=== PATIENT | female | born 1985 | race Caucasian/White ===

== ENCOUNTER 2024-02-23 19:23 | Inpatient (IN) | payer OTHER ==
[~2024-02-23] VITALS: Ht 160 cm; Wt 63.7 kg
[~2024-02-23 19:23] MED LIST: MOTRIN 600600 MG/TAB PO; PERCOCET 325 MG1 TA2 PO; PRENATAL1 TA1 PO; SYNTHROID 0.0.025 MG PO; TIROSINT50 MCG PO
[2024-02-23] MEDS ORDERED: NS 1,000 ML IV SCH (19:45)
[2024-02-23] MEDS ORDERED: Acetaminophen 325 MG TAB PO PRN (19:45)
[2024-02-23] MEDS ORDERED: Promethazine 25 MG TAB PO PRN (19:45)
[2024-02-23] MEDS ORDERED: Albuterol/Ipratropium 3 MG-0.5 MG/3 ML Neb Soln IH PRN (19:45)
[2024-02-23] MEDS ORDERED: AMITRIPTYLINE H10 M1 PO (19:46)
[2024-02-23] MEDS ORDERED: NAPROSYN500 MG PO (19:47)
[2024-02-23] MEDS ORDERED: FOLIC ACID 40400 MCG PO (19:47)
[2024-02-23] MEDS ORDERED: SYNTHROID0.075 MG/T PO (19:47)
[2024-02-23] MEDS ORDERED: Doxycycline Hyclate 100 MG in NS 150 ML IV SCH (20:00)
[2024-02-23] MEDS ORDERED: Albuterol/Ipratropium 3 MG-0.5 MG/3 ML Neb Soln IH SCH (20:00)
[2024-02-24] VITALS (9 sets, daily range): BP systolic 94–109; BP diastolic 46–71; PULSE 74–90; TEMP 98–103.2
[2024-02-24] MEDS ORDERED: VITAMIN C500 MG PO (01:33)
[2024-02-24] MEDS ORDERED: FERROUS GLUCON240 MG PO (01:34)
[2024-02-24] MEDS ORDERED: Amitriptyline 10 MG TAB PO SCH (01:50)
[2024-02-24] MEDS ORDERED: ZANAFLEX2 MG PO (01:52)
[2024-02-24] MEDS ORDERED: guaiFENesin/Dextromethorphan Oral Soln 200-20 MG/10 ML UD PO PRN (02:00)
[2024-02-24] MEDS ORDERED: Benzonatate 100 MG CAP PO SCH (03:00)
[2024-02-24] MEDS ORDERED: Doxycycline Hyclate 100 MG in NS 150 ML IV SCH (03:00)
--- NOTE | 2024-02-24 05:30 | NUR ---
pt ARRIVED TO THE MEDICAL FLOOR AROUND 0115 TO ROOM 305. pt A&O X 4; VSS WITH B/P A BIT LOW; O2 2L VIA NC. pt DENIES GENERAL PAIN, CHEST PAIN, PALPITATIONS, N,V,D, OR DIZZINESS. ADMISSIONS ASSESSMENT AND MED REC COMPLETE. pt ORIENTED TO ROOM AND HOSPITAL POLICY. POC DISCUSSED WITH pt. pt VERBALIZED UNDERSTANDING. ALL QUESTIONS AND CONCERNS ADDRESSED. pt EXPRESSED NO ADDITIONAL NEED AT THIS TIME. CALL LIGHT WITHIN REACH.
[2024-02-24 08:40] LABS: BASO % 0.2 % (0.0-2.0); EOS # 0.1 K/mm3 (0.0-0.7); EOS % 0.9 % (0.0-4.0); GRAN # 7.8 K/mm3 (1.4-6.5); GRAN % 80.4 % (42.2-75.2); HEMOGLOBIN 11.8 g/dl (12.5-16.0); LYMPH # 0.7 K/mm3 (1.2-3.4); LYMPH % 7.3 % (20.0-51.0); MEAN CELL VOLUME 87 fl (80.0-100.0); MEAN CORPUSCULAR HEMOGLOBIN 31 pg (27-31); MEAN CORPUSCULAR HGB CONC 36 g/dl (33.0-37.0); MEAN PLATELET VOLUME 9.8 fl (7.4-10.4); MONO % 10.2 % (1.7-9.3); PLATELET COUNT 281 K/mm3 (130-400); RED BLOOD COUNT 3.78 M/mm3 (4.10-5.30); REDCELL DISTRIBUTION WIDTH-CV 12.1 % (11.5-14.5)
[2024-02-24 08:41] LABS: HEMATOCRIT 32.8 % (37.0-47.0)
[2024-02-24] MEDS ORDERED: Ascorbic Acid 500 MG TAB PO SCH (09:00)
[2024-02-24] MEDS ORDERED: Folic Acid 1 MG TAB PO SCH (09:00)
[2024-02-24 09:05] LABS: ALBUMIN 2.5 g/dL (3.5-5.0); BILIRUBIN,TOTAL 0.4 mg/dL (0.2-1.2); CALCIUM 8.2 mg/dL (8.4-10.2); CREATININE, serum 0.66 mg/dL (0.57-1.11); POTASSIUM 3.5 mEq/L (3.5-4.5); TOTAL PROTEIN 5.8 g/dl (6.2-8.1)
--- NOTE | 2024-02-24 09:35 | NUR ---
Patient sitting up in bed, alert and oriented x4, VSS. States some headache and temp, tylenol provided. Assessment completed. Getting 2L O2 NC. fluids per orders. No further needs at this time. Call light within reach. Awaiting for breakfast and transfer to other room.
[2024-02-24] MEDS ORDERED: Ibuprofen 400 MG TAB PO PRN (09:45)
--- NOTE | 2024-02-24 13:08 | NUR ---
Initial visit; [place] nervous at first but warmed up to Early Childhood Education Coordinator who gave her son some attention and talked with her and her . Patient seemed to believe she is doing better. She thanked Early Childhood Education Coordinator for looking in on them and offering God's blessings.
[2024-02-24] MEDS ORDERED: Cefepime 1 G in Water For Injection,Sterile 10 ML IV SCH (15:00)
--- NOTE | 2024-02-24 15:19 | NUR ---
SW met with patient to complete initial assessment for discharge planning. Patient lives at home with her /DPDEB Aiken ([phone]) and their two children ages 9 and 6. Patient's is active , therefore they use [facility] for medical care and for pharmacy. Patient states she sometimes uses [facility] pharmacy for immediate, low cost needs. Patient denies having any DME and reports to be independent. She plans to return home at discharge. Discharge plan: Home
--- NOTE | 2024-02-24 21:49 | NUR ---
patient lying in bed, alert and oriented x4. denies chest pain/discomfort and shortness of breath. o2 sats around 89 to 90 percent on RA, 1L per NC of o2 placed and maintained. IV in RF is patent, site is CDI with NS running at 100 ml/hr. dry cough with occasional scant sputum production noted. hot tea provided per request. elevated oral temperature, tylenol refused, motrin requested and provided. ambulating with steady gait. pt upset about receiving little sleep the previous night with many interruptions, pt educated and agreed on staff providing clustered care to help minimize interruptions. no remarkable skin findings. call light within reach. pt has no further needs, questions or concerns at this time.
[2024-02-25] VITALS (13 sets, daily range): BP systolic 95–117; BP diastolic 59–75; PULSE 67–98; TEMP 97.6–100.3
[2024-02-25 07:52] LABS: HEMOGLOBIN 11.1 g/dl (12.5-16.0); MEAN CELL VOLUME 87 fl (80.0-100.0); MEAN CORPUSCULAR HEMOGLOBIN 31 pg (27-31); MEAN CORPUSCULAR HGB CONC 36 g/dl (33.0-37.0); MEAN PLATELET VOLUME 9.9 fl (7.4-10.4); PLATELET COUNT 310 K/mm3 (130-400); RED BLOOD COUNT 3.58 M/mm3 (4.10-5.30); REDCELL DISTRIBUTION WIDTH-CV 12.4 % (11.5-14.5)
[2024-02-25 07:56] LABS: HEMATOCRIT 31.3 % (37.0-47.0)
[2024-02-25 08:18] LABS: ALANINE AMINOTRANSFERASE 92 U/L (0-55); ALBUMIN 2.2 g/dL (3.5-5.0); ALKALINE PHOSPHATASE 44 U/L (40-150); ANION GAP 10 mmol/L (7-16); AST,SGOT 63 U/L (5-34); BILIRUBIN,TOTAL 0.4 mg/dL (0.2-1.2); CALCIUM 7.6 mg/dL (8.4-10.2); CHLORIDE 106 mEq/L (98-107); CREATININE, serum 0.57 mg/dL (0.57-1.11); GLUCOSE 90 mg/dL (70-99); POTASSIUM 3.7 mEq/L (3.5-4.5); SODIUM 137 mEq/L (136-145); TOTAL PROTEIN 5.2 g/dl (6.2-8.1)
[2024-02-25 08:20] LABS: BLOOD UREA NITROGEN < 5 mg/dL (7-19)
[2024-02-25 08:55] LABS: BAND 15 % (0-10); EOSINOPHIL 1 % (0-4); LYMPHOCYTE 7 % (20.0-51.0); METAMYELOCYTE 3 % (0-0); MYELOCYTE 2 % (0-0); NEUTROPHILS 64 % (42.0-75.2)
[2024-02-25 08:56] LABS: PLATELET ESTIMATE NORMAL (NORMAL)
[2024-02-25] MEDS ORDERED: DOXYCYCLINE HY100 MG PO (09:57)
[2024-02-25] MEDS ORDERED: OMNICEF 300MG300 MG PO (09:57)
[2024-02-25] MEDS ORDERED: ZOFRAN ODT4 MG PO (09:58)
[2024-02-25] MEDS ORDERED: Ondansetron 4 MG TAB PO PRN (10:15)
[2024-02-25] MEDS ORDERED: ACIDOPHILIS PO (11:09)
[2024-02-25] MEDS ORDERED: Doxycycline Hyclate 100 MG in NS 150 ML IV SCH (15:30)
--- NOTE | 2024-02-25 19:09 | NUR ---
IV site to LFA infilltrated- site d/c'd with cath tip intact. Gunnar Wilkerson RN started #22g diffusic x1 attempt to LH. Scheduled Tessalon Pearls administered and prn Robitussin x2 today for cough. Pt reports overall feeling better. Independent in room. Denies pain or needs. Bedside report given to MEREDITH Soto.
[2024-02-26] MEDS ORDERED: Cefdinir 300 MG CAP PO SCH
[2024-02-26] MEDS ORDERED: Doxycycline Monohydrate 100 MG CAP PO SCH
[2024-02-26 00:16] VITALS: BP_SYST 99
--- NOTE | 2024-02-26 01:41 | NUR ---
patient lying in bed, alert and oriented x4. denies chest pain/discomfort and shortness of breath. IV in LH is patent, site is CDI. ambulating withi steady gait. call light within reach. pt has no further needs, questions or concerns at this time
[2024-02-26 03:50] VITALS: BP 102/65; PULSE 72; TEMP 98.5
[2024-02-26 03:56] VITALS: BP_SYST 102
[2024-02-26 06:20] LABS: HEMOGLOBIN 10.9 g/dl (12.5-16.0); MEAN CELL VOLUME 90 fl (80.0-100.0); MEAN CORPUSCULAR HEMOGLOBIN 31 pg (27-31); MEAN CORPUSCULAR HGB CONC 34 g/dl (33.0-37.0); MEAN PLATELET VOLUME 9.7 fl (7.4-10.4); PLATELET COUNT 380 K/mm3 (130-400); RED BLOOD COUNT 3.55 M/mm3 (4.10-5.30); REDCELL DISTRIBUTION WIDTH-CV 12.9 % (11.5-14.5)
[2024-02-26 06:55] LABS: ALANINE AMINOTRANSFERASE 95 U/L (0-55); ALBUMIN 2.3 g/dL (3.5-5.0); ALKALINE PHOSPHATASE 48 U/L (40-150); ANION GAP 11 mmol/L (7-16); AST,SGOT 65 U/L (5-34); BILIRUBIN,TOTAL 0.3 mg/dL (0.2-1.2); CALCIUM 7.8 mg/dL (8.4-10.2); CHLORIDE 104 mEq/L (98-107); CREATININE, serum 0.64 mg/dL (0.57-1.11); GLUCOSE 90 mg/dL (70-99); POTASSIUM 3.9 mEq/L (3.5-4.5); SODIUM 136 mEq/L (136-145); TOTAL PROTEIN 5.4 g/dl (6.2-8.1)
[2024-02-26 07:05] LABS: BLOOD UREA NITROGEN < 5 mg/dL (7-19)
[2024-02-26 07:25] VITALS: BP 103/68; PULSE 68; TEMP 97.5
[2024-02-26 07:42] LABS: BAND 1 % (0-10); EOSINOPHIL 1 % (0-4); LYMPHOCYTE 17 % (20.0-51.0); NEUTROPHILS 71 % (42.0-75.2); PLATELET ESTIMATE NORMAL (NORMAL)
[2024-02-26 09:10] VITALS: BP_SYST 103
--- NOTE | 2024-02-26 09:40 | NUR ---
Assessment complete. Pt denies pain or SOA. Robitussin cough syrup administered. IV site infilltrated and unable to administer IV antibiotics. Dr. Winston made aware. Patient discharging today. Order rec'd for oral antibiotic. IV to d/c'd with cath tip intact. Pt independent in room.
[2024-02-26] MEDS ORDERED: Cefdinir 300 MG CAP PO ONE (10:00)
[2024-02-26 12:09] VITALS: BP 135/77; PULSE 75; TEMP 97.5
--- NOTE | 2024-02-26 12:15 | NUR ---
Discharge instructions reviewed with patient- patient verbalizes understanding. Pt escorted to private vehicle and discharged home with spouse.
[2024-02-27] MEDS ORDERED: Cefdinir 300 MG CAP PO SCH
[2024-02-27] MEDS ORDERED: Doxycycline Monohydrate 100 MG CAP PO SCH
== END 2024-02-26 12:20 | disposition home or self-care (01) | DRG 871 ==
LOC: MEDICAL 19:23
PROVIDERS: Nurse Practitioner Family; ADMIT Internal Medicine
DX: A41.9 Sepsis, unspecified organism (principal); J18.9 Pneumonia, unspecified organism; E87.1 Hypo-osmolality and hyponatremia; E03.9 Hypothyroidism, unspecified; Z20.822 Contact with and (suspected) exposure to COVID-19; R19.7 Diarrhea, unspecified; R74.01 Elevation of levels of liver transaminase levels; E87.8 Other disorders of electrolyte and fluid balance, not elsewhere classified; Z79.899 Other long term (current) drug therapy; Z79.890 Hormone replacement therapy; Z87.891 Personal history of nicotine dependence; Z88.0 Allergy status to penicillin
CPT/HCPCS: J0692; J1650; J7030